=== PATIENT | male | born 1930 | race Caucasian/White ===

== ENCOUNTER → 2018-02-15 | Outpatient (CLI) | payer BC ==
--- NOTE | 2018-02-15 13:48 | DIAGNOSTIC IMAGING REPORT ---
RIGHT KNEE 2 VIEWS CLINICAL HISTORY: Right knee pain. FINDINGS: AP and lateral views of the right knee are compared to study dated 09/11/2010. The skeletal structures are osteopenic. No fracture is seen. There is advanced tricompartmental degenerative joint space narrowing, greatest in the lateral and patellofemoral compartments. There are small marginal osteophytes and patellar enthesophytes. No joint effusion is identified. Mild pretibial soft tissue swelling is noted. IMPRESSION: 1. Pretibial soft tissue swelling with no acute bony abnormality identified. 2. Osteopenia and arthritic change as above. This has modestly progressed from the 2009 examination. Electronically signed by: Moy Espitia M.D. 02/15/2018 1:47 PM Dictated Date/Time: 02/15/2018 1:46 PM
--- NOTE | 2018-02-15 13:59 | DIAGNOSTIC IMAGING REPORT ---
L KNEE 1 OR 2 VIEWS ROUTINE CLINICAL HISTORY: 87 years-old Male presenting with PAIN. TECHNIQUE: Frontal and lateral views of the left knee were obtained. COMPARISON: None. FINDINGS: Lateral joint space loss. Minimal lateral compartment osteophytosis as well as patellofemoral compartment osteophytosis. No acute fracture or malalignment. No advanced degenerative change. Trace knee joint effusion. Atherosclerosis. IMPRESSION: 1. Degenerative changes in the lateral and patellofemoral compartments. 2. No acute osseous injury. Electronically signed by: Chapo Vidal M.D. 02/15/2018 1:57 PM Dictated Date/Time: 02/15/2018 1:56 PM
== END | disposition home or self-care (01) ==
LOC: C.RAD 13:21
PROVIDERS: ATTEND Internal Medicine Hospice and Palliative Medicine
DX: M25.561 Pain in right knee (principal); M25.562 Pain in left knee

== ENCOUNTER → 2018-06-11 | Outpatient (CLI) | payer BC ==
[2018-06-11 09:42] LABS: HEMATOCRIT 40.8 % (42-52); HEMOGLOBIN 13.3 g/dL (14.0-18.0); MEAN CELL VOLUME 95.3 fL (80-100); MEAN CORPUSCULAR HEMOGLOBIN 31.1 pg (25-34); MEAN CORPUSCULAR HGB CONC 32.6 g/dl (32-36); MEAN PLATELET VOLUME 11.2 fL (7.4-10.4); PLATELET COUNT 262 K/uL (130-400); RED CELL DISTRIBUTION WIDTH CV 12.5 % (11.5-14.5); WHITE BLOOD COUNT 5.94 K/uL (4.8-10.8)
[2018-06-11 10:04] LABS: ALBUMIN 3.3 gm/dl (3.4-5.0); ALKALINE PHOSPHATASE 84 U/L (45-117); ALT/SGPT 25 U/L (12-78); AST/SGOT 23 U/L (15-37); BLOOD UREA NITROGEN 15 mg/dl (7-18); CALCIUM 8.9 mg/dl (8.5-10.1); CARBON DIOXIDE 27 mmol/L (21-32); CHOLESTEROL 193 mg/dl (0-200); CREATININE 0.87 mg/dl (0.60-1.40); GLUCOSE 84 mg/dl (70-99); LDL CHOLESTEROL CALCULATED 99 mg/dl; POTASSIUM 4.4 mmol/L (3.5-5.1); SODIUM 139 mmol/L (136-145); TOTAL PROTEIN 7.3 gm/dl (6.4-8.2)
== END ==
LOC: C.LABFOXMH 09:25
PROVIDERS: ATTEND Internal Medicine
DX: I10 Essential (primary) hypertension (principal)